=== PATIENT | female | born 1960 | race Caucasian/White ===

== ENCOUNTER 2021-10-27 02:36 | Emergency (ER) | payer BC ==
--- NOTE | 2021-10-27 04:38 | ER ---
Nurse's Notes [facility] Name: Loenela Sanchez Age: 60 yrs Sex: Female : 1960 Arrival Date: 10/27/2021 Time: 02:38 Bed 27 Private MD: Diagnosis: Anisocoria-possible, resolved Presentation: 10/27 02:55 Chief complaint: EMS states: they were toned out for report of pt found asleep in her bb car at [facility] because her left pupil was bigger than her right pupil pt is A\T\O x 4. Coronavirus screen: At this time, the client does not indicate any symptoms associated with coronavirus-19. Ebola Screen: No symptoms or risks identified at this time. Initial Sepsis Screen: Does the patient meet any 2 criteria? No. Patient's initial sepsis screen is negative. Does the patient have a suspected source of infection? No. Patient's initial sepsis screen is negative. Risk Assessment: Do you want to hurt yourself or someone else? Patient reports no desire to harm self or others. Onset of symptoms was October 27, 2021. 02:55 Method Of Arrival: EMS: [facility] 02:55 Acuity: LUCIEN 5 bb Triage Assessment: 02:58 General: Appears in no apparent distress. Behavior is calm, cooperative. Pain: Denies bb pain. EENT: Eyes left pupil 2 mm larger than right pupil. Neuro: Level of Consciousness is awake, alert, obeys commands, Oriented to person, place, time, situation. Cardiovascular: Capillary refill < 3 seconds Patient's skin is warm and dry. Respiratory: Respiratory effort is even, unlabored, Respiratory pattern is regular. GI: No signs and/or symptoms were reported involving the gastrointestinal system. Derm: Skin is pink, warm \T\ dry. Musculoskeletal: Circulation, motion, and sensation intact. Historical: - Allergies: 02:58 NKDA; bb - Home Meds: 02:58 None [Active]; bb - PMHx: 02:58 None; bb - PSHx: 02:58 tubal; bb - Immunization history:: Client reports having NOT received the Covid vaccine. - Social history:: Smoking status: Patient/guardian denies using tobacco. Screenin:35 Abuse screen: Denies threats or abuse. Nutritional screening: No deficits noted. ke1 Tuberculosis screening: No symptoms or risk factors identified. Fall Risk None identified. Assessment: 04:38 Reassessment: Patient denies pain at this time. Patient states feeling better. ke1 Vital Signs: 02:55 BP 136 / 65; Pulse 74; Resp 16 S; Temp 97.6(O); Pulse Ox 100% on R/A; Weight 76.2 kg bb (R); Height 5 ft. 2 in. (157.48 cm) (R); Pain 0/10; 02:55 Body Mass Index 30.73 (76.20 kg, 157.48 cm) ED Course: 02:38 Patient arrived in ED. 2 02:57 Triage completed. bb 02:58 Arm band placed on Patient placed in waiting room, Patient notified of wait time. 03:36 Greg Richardson RN is Primary Nurse. ke1 03:44 Milton Ortega MD is Attending Physician. [facility] 04:36 Yeyo Cummings MD is Referral Physician. [facility] 04:36 Martha Benson MD is Referral Physician. [facility] 04:36 Bed in low position. Call light in reach. ke1 04:38 No provider procedures requiring assistance completed. ke1 04:55 Patient did not have IV access during this emergency room visit. ke1 Administered Medications: No medications were administered Medication: 04:55 VIS not applicable for this client. ke1 Outcome: 04:37 Discharge ordered by . 7 04:54 Discharged to home ambulatory. ke1 04:54 Condition: good 04:54 Condition: good 04:54 Discharge instructions given to patient. 04:55 Patient left the ED. ke1 Signatures: Siobhan Fatima RN RN Milton Ortega MD MD [facility] Mehreen Day [facility] Greg Richardson RN RN ke1
--- NOTE | 2021-10-27 04:38 | EDPHYS ---
Physician Documentation [facility] Name: Leonela Sanchez Age: 60 yrs Sex: Female : 1960 Arrival Date: 10/27/2021 Time: 02:38 Bed 27 Private MD: ED Physician Milton Ortega HPI: 10/27 04:25 This 60 yrs old Female presents to ER via EMS with complaints of Possible pupil problem.mh7 04:25 The patient is experiencing possible unequal pupil sizes, to the left eye, caused by an mh7 unknown mechanism. Onset: The symptoms/episode began/occurred today. Duration: the symptoms are episodic. Aggravated by nothing. Alleviated by nothing. Associated signs and symptoms: Pertinent negatives: None. Patient does not utilize any form of vision correction. Severity of symptoms: At their worst the symptoms were very mild in the emergency department the symptoms have resolved and did so earlier today. Patient states that she was taking a nap in her car and the police came by and checked on her. They told her that her left pupil seemed larger than the right. She states that they made her come to the ER to get evaluated. She denies any complaints.. Historical: - Allergies: 02:58 NKDA; bb - Home Meds: 02:58 None [Active]; bb - PMHx: 02:58 None; bb - PSHx: 02:58 tubal; bb - Immunization history:: Client reports having NOT received the Covid vaccine. - Social history:: Smoking status: Patient/guardian denies using tobacco. ROS: 04:25 Constitutional: Negative for fever, chills, and weight loss, ENT: Negative for injury, mh7 pain, and discharge, Neck: Negative for injury, pain, and swelling, Cardiovascular: Negative for chest pain, palpitations, and edema, Respiratory: Negative for shortness of breath, cough, wheezing, and pleuritic chest pain, Abdomen/GI: Negative for abdominal pain, nausea, vomiting, diarrhea, and constipation, Back: Negative for injury and pain, : Negative for injury, bleeding, discharge, and swelling, MS/Extremity: Negative for injury and deformity, Skin: Negative for injury, rash, and discoloration, Neuro: Negative for headache, weakness, numbness, tingling, and seizure, Psych: Negative for depression, anxiety, suicide ideation, homicidal ideation, and hallucinations, Allergy/Immunology: Negative for hives, rash, and allergies, Endocrine: Negative for neck swelling, polydipsia, polyuria, polyphagia, and marked weight changes, Hematologic/Lymphatic: Negative for swollen nodes, abnormal bleeding, and unusual bruising. Exam: 04:25 Constitutional: This is a well developed, well nourished patient who is awake, alert, mh7 and in no acute distress. Head/Face: Normocephalic, atraumatic. 04:25 ENT: Nares patent. No nasal discharge, no septal abnormalities noted. Tympanic membranes are normal and external auditory canals are clear. Oropharynx with no redness, swelling, or masses, exudates, or evidence of obstruction, uvula midline. Mucous membranes moist. Neck: Trachea midline, no thyromegaly or masses palpated, and no cervical lymphadenopathy. Supple, full range of motion without nuchal rigidity, or vertebral point tenderness. No Meningismus. Chest/axilla: Normal chest wall appearance and motion. Nontender with no deformity. No lesions are appreciated. Cardiovascular: Regular rate and rhythm with a normal S1 and S2. No gallops, murmurs, or rubs. Normal PMI, no JVD. No pulse deficits. Respiratory: Lungs have equal breath sounds bilaterally, clear to auscultation and percussion. No rales, rhonchi or wheezes noted. No increased work of breathing, no retractions or nasal flaring. Abdomen/GI: Soft, non-tender, with normal bowel sounds. No distension or tympany. No guarding or rebound. No evidence of tenderness throughout. Back: No spinal tenderness. No costovertebral tenderness. Full range of motion. Skin: Warm, dry with normal turgor. Normal color with no rashes, no lesions, and no evidence of cellulitis. MS/ Extremity: Pulses equal, no cyanosis. Neurovascular intact. Full, normal range of motion. Neuro: Awake and alert, GCS 15, oriented to person, place, time, and situation. Cranial nerves II-XII grossly intact. Motor strength 5/5 in all extremities. Sensory grossly intact. Cerebellar exam normal. Normal gait. Psych: Awake, alert, with orientation to person, place and time. Behavior, mood, and affect are within normal limits. 04:25 Eyes: Periorbital structures: appear normal, Pupils: equal, round, and reactive to light and accomodation, Extraocular movements: intact throughout, Conjunctiva: normal, Corneas: are normal, Sclera: no appreciated abnormality, Lids and lashes: appear normal, funduscopic exam reveals no obvious abnormalities, Visual peña: are intact, Nystagmus: is not appreciated. Vital Signs: 02:55 BP 136 / 65; Pulse 74; Resp 16 S; Temp 97.6(O); Pulse Ox 100% on R/A; Weight 76.2 kg bb (R); Height 5 ft. 2 in. (157.48 cm) (R); Pain 0/10; 02:55 Body Mass Index 30.73 (76.20 kg, 157.48 cm) bb MDM: 04:31 Differential diagnosis: Acute iritis of Acute glaucoma in Ultraviolet keratitis in mh7 Anisocoria, CVA. Data reviewed: vital signs, nurses notes, EMS record. Data interpreted: Pulse oximetry: on room air is 100 %. Interpretation: normal. Counseling: I had a detailed discussion with the patient and/or guardian regarding: the historical points, exam findings, and any diagnostic results supporting the discharge/admit diagnosis. Response to treatment: the patient's symptoms have resolved after treatment, the patient's blood pressure is in an acceptable range, mental status has returned to baseline, the patient no longer shows bradycardia, the patient is not short of breath, the patient is not tachycardic, the patient's pain is gone, the patient's temperature has normalized. Refusal of service: The patient/guardian displays adequate decision making capability and despite a detailed discussion of alternatives, benefits, risks, and consequences refuses: CT Scan, all lab tests. ED course: Well appearing, NAD, VSS, no focal neurological deficits. No visual disturbances or other complaints. Recommended lab work and CT head but patient refused. She will follow up with her doctor. Advised her to return to the ER if return of condition or any other concerns.. 04:37 Patient medically screened. mh7 Administered Medications: No medications were administered Disposition Summary: 10/27/21 04:37 Discharge Ordered Location: Home [facility] Problem: new [facility] Symptoms: are resolved [facility] Condition: Stable [facility] Diagnosis - Anisocoria - possible, resolved mh7 Followup: [facility] - With: Private Physician - When: 1 - 2 days - Reason: Worsening of condition, Recheck today's complaints, Continuance of care, Re-evaluation by your physician Followup: [facility] - With: Yeyo Cummings MD - When: 1 - 2 days - Reason: Worsening of condition, Recheck today's complaints Followup: [facility] - With: Martha Benson MD - When: 1 - 2 days - Reason: Worsening of condition, Recheck today's complaints Discharge Instructions: - Discharge Summary Sheet [facility] - Dry Eye [facility] Forms: - Medication Reconciliation Form [facility] - Thank You Letter [facility] - Antibiotic Education [facility] - Prescription Opioid Use [facility] Signatures: Siobhan Fatima RN RN Milton Nugent MD MD [facility]
[2021-10-27 05:05] VITALS: BP 136/65; TEMP 97.6; O2SAT 100
== END 2021-10-27 04:55 | disposition home or self-care (01) ==
LOC: ER 02:36
DX: H57.89 Other specified disorders of eye and adnexa (principal)